=== PATIENT | female | born 1980 | race Caucasian/White ===

== ENCOUNTER 2023-08-14 09:30 | Outpatient (CLI) | payer MEDICAID | END 2023-08-14 09:31 | disposition critical access hospital (66) | LOC: EMS 09:30 | DX: Z04.6 Encounter for general psychiatric examination, requested by authority (principal); R45.851 Suicidal ideations; Z59.89 Other problems related to housing and economic circumstances; Z63.0 Problems in relationship with spouse or partner | CPT/HCPCS: A0425; A0429; A0999 ==

== ENCOUNTER 2023-08-14 10:00 | Emergency (ER) | payer MEDICAID, OTHER ==
--- NOTE | 2023-08-14 10:13 | ED Physician Documentation ---
PD HPI MHE - Stated complaint Stated Complaint: SI - History obtained from History obtained from: Patient, EMS - History of Present Illness Primary symptom: Suicidal ideation (She had suicidal ideation-when up to the bridge with thoughts of jumping. She states she is afraid of heights and really does not want to kill herself so this was a major step. She has had significant life change in the last couple of months with a new job and her unsupportive, financial.), Depression Timing - onset: How many months ago (1-2, worse the past week or more.) Contributing factors: Sig other, Work, Money, Off meds (ran out of [employer] and psych provider not refilling it. Still taking other meds.). No: Substance abuse - ETOH, Substance abuse - drugs Similar symptoms before: Diagnosis (depression but no prior suicidal ideation to this degree) Recently seen: Not recently seen PD PAST MEDICAL HISTORY - Allergies Allergies/Adverse Reactions: Allergies Allergy/AdvReac Type Severity Reaction Status Date / Time quetiapine [From Seroquel] AdvReac Hallucinati Verified 08/14/23 10:23 ons PD ED PE NORMAL - Vitals Vital signs reviewed: Yes - General General: Alert and oriented X 3, Well developed/nourished, Other (tearful and sad) - Neck Neck: Supple, no meningeal sign, No adenopathy - Cardiac Cardiac: RRR, No murmur - Respiratory Respiratory: Clear bilaterally - Abdomen Abdomen: Soft, Non tender - Derm Derm: Normal color, Warm and dry - Extremities Extremities: Normal ROM s pain, No edema, No calf tenderness / cord - Neuro Neuro: Alert and oriented X 3, No motor deficit, Normal speech Eye Opening: Spontaneous Motor: Obeys Commands Verbal: Oriented GCS Score: 15 - Psych Psych: Normal affect (sad). No: Normal mood (sad and tearful ) Results - Vitals Vitals: Vital Signs - 24 hr 08/14/23 08/14/23 10:05 14:22 Temperature 37.0 C 36.8 C Heart Rate 83 70 Respiratory 14 16 Rate Blood Pressure 165/107 H 138/88 H O2 Saturation 98 99 Oxygen O2 Source Room air - Labs Labs: Laboratory Tests 08/14/23 08/14/23 08/14/23 10:16 10:16 10:25 WBC 8.7 RBC 5.33 Hgb 14.0 Hct 44.1 MCV 82.7 MCH 26.3 L MCHC 31.7 L RDW 14.8 Plt Count 491 H MPV 9.2 Neut # (Auto) 5.6 Lymph # (Auto) 2.4 Mcculloch # (Auto) 0.6 Eos # (Auto) 0.1 Baso # (Auto) 0.0 Absolute Nucleated RBC 0.00 Nucleated RBC % 0.0 Sodium Potassium Chloride Carbon Dioxide Anion Gap BUN Creatinine Estimated GFR (MDRD) Glucose Calcium Magnesium Total Bilirubin AST ALT Alkaline Phosphatase Total Creatine Kinase Total Protein Albumin Globulin Albumin/Globulin Ratio Lipase TSH Urine Color YELLOW Urine Clarity SL. CLOUDY Urine pH 6.5 Ur Specific [place] 1.020 Urine Protein NEGATIVE Urine Glucose (UA) NEGATIVE Urine Ketones NEGATIVE Urine Occult Blood SMALL H Urine Nitrite NEGATIVE Urine Bilirubin NEGATIVE Urine Urobilinogen 0.2 (NORMAL) Ur Leukocyte Esterase NEGATIVE Urine RBC 6-10 H Urine WBC 0-3 Ur Squamous Epith Cells MANY Squamous H Urine Bacteria Few Ur Microscopic Review INDICATED Urine Culture Comments NOT INDICATED Urine HCG, Qual NEGATIVE Salicylates Urine Opiates Screen NEGATIVE Ur Oxycodone Screen NEGATIVE Urine Methadone Screen NEGATIVE Ur Propoxyphene Screen NEGATIVE Acetaminophen Ur Barbiturates Screen NEGATIVE Ur Tricyclics Screen NEGATIVE Ur Phencyclidine Scrn NEGATIVE Ur Amphetamine Screen NEGATIVE U Methamphetamines Scrn NEGATIVE U Benzodiazepines Scrn POSITIVE H Urine Cocaine Screen NEGATIVE U Cannabinoids Screen POSITIVE H Ethyl Alcohol SARS-CoV-2 (PCR) NOT DETECTED 08/14/23 08/14/23 10:25 16:05 WBC RBC Hgb Hct MCV MCH MCHC RDW Plt Count MPV Neut # (Auto) Lymph # (Auto) [place] # (Auto) Eos # (Auto) Baso # (Auto) Absolute Nucleated RBC Nucleated RBC % Sodium 140 138 Potassium 3.2 L 3.6 Chloride 103 104 Carbon Dioxide 27 26 Anion Gap 10.0 8.0 BUN 5 L 6 Creatinine 0.6 0.5 L Estimated GFR (MDRD) 110 136 Glucose 107 H 108 H Calcium 9.9 9.3 Magnesium 1.7 Total Bilirubin 0.6 AST 18 ALT 29 Alkaline Phosphatase 64 Total Creatine Kinase 70 Total Protein 7.9 Albumin 4.9 Globulin 3.0 Albumin/Globulin Ratio 1.6 Lipase 18 TSH 3.34 Urine Color Urine Clarity Urine pH Ur Specific [place] Urine Protein Urine Glucose (UA) Urine Ketones Urine Occult Blood Urine Nitrite Urine Bilirubin Urine Urobilinogen Ur Leukocyte Esterase Urine RBC Urine WBC Ur Squamous Epith Cells Urine Bacteria Ur Microscopic Review Urine Culture Comments Urine HCG, Qual Salicylates < 1.5 Urine Opiates Screen Ur Oxycodone Screen Urine Methadone Screen Ur Propoxyphene Screen Acetaminophen 0.1 Ur Barbiturates Screen Ur Tricyclics Screen Ur Phencyclidine Scrn Ur Amphetamine Screen U Methamphetamines Scrn U Benzodiazepines Scrn Urine Cocaine Screen U Cannabinoids Screen Ethyl Alcohol < 10.0 SARS-CoV-2 (PCR) PD Medical Decision Making - ED course Complexity details: reviewed results (Basic chemistry panel and blood count are normal with the exception of a low potassium at 3.2. She is given oral supplementation for that.), re-evaluated patient (Initial blood pressure was slightly elevated with a recheck in the normal range at 138/88. Otherwise the patient is resting comfortably. She did ask for something to help with sleep and relaxing. She was given trazodone orally.), considered differential ( Longer-term history of depression with acute worsening in the last month and suicidal ideation with initial steps of going to the bridge today. She is voluntary for hospitalization. Social work is talked with her.), d/w patient Reviewed Lab Results: [facility] facility is excepting the patient provided we give an extra potassium and recheck the level to be more normal. She had been given an oral supplement. Recheck potassium is now 3.6. We will fax the results to [facility] and presume the patient will be ready for for acceptance. Transport will then be arranged. The patient is remained stable here in the ER pleasant and cooperative. She has been resting. Social Determinants of Health: The patient states she has been having a new job in the last month and a half. She is liking her new job. She has a new psychiatric provider in the last couple of months. She states her is not very supportive but is still at home with her. She denies substance abuse. She does need increased psychological help and support and may benefit from change in medication. She is acutely worse with suicidal ideation and made the forward movement of actually going up to the bridge with thoughts of jumping off. She was found by a Health Sciences Department Chair there who called police and she was brought here for evaluation. She would like help. ED course: Social work is talk to the patient and is looking for voluntary placement for her. Social work did find voluntary placement for her at [facility]. They requested that we supplement her potassium as it was so normal. We we will give an oral potassium dose and they did request that we recheck the lab. We will give it 1/2-hour after the oral dosing and recheck the labs. Departure - Departure Disposition: 65 Psych Hosp/Unit DC/Xfer Clinical Impression: Suicidal ideation, Reactive depression, Hypokalemia Depression Qualifiers: Depression Type: persistent depressive disorder Qualified Code(s): F34.1 - Dysthymic disorder Condition: Stable Record reviewed to determine appropriate education?: Yes Forms: PCP List
[2023-08-14 10:21] LABS: MUDS CUTOFF CONCENTRATIONS CUTOFF CONC BELOW:
[2023-08-14 10:24] LABS: BILIRUBIN,URINE NEGATIVE (NEGATIVE); GLUCOSE, URINE (UA) NEGATIVE (NEGATIVE); KETONES,URINE (UA) NEGATIVE (NEGATIVE); LEUKOCYTE ESTERASE, URINE NEGATIVE (NEGATIVE); NITRITE,URINE NEGATIVE (NEGATIVE); OCCULT BLOOD,URINE SMALL (NEGATIVE); PH,URINE 6.5 PH (5.0-7.5); PROTEIN,URINE NEGATIVE (NEGATIVE); UROBILINOGEN,URINE 0.2 (NORMAL) E.U./dL (NORMAL)
[2023-08-14 10:25] LABS: CLARITY,URINE SL. CLOUDY (CLEAR); HCG UR QUAL NEGATIVE
[2023-08-14 10:28] LABS: BACTERIA,URINE Few /HPF (None Seen); SQUAMOUS EPITHELIAL CELL,UR MANY Squamous (<= Few); WBC,URINE 0-3 /HPF (0-5)
[2023-08-14 10:32] LABS: BASOPHILS % (AUTO) 0.3 %; EOSINOPHILS # (AUTO) 0.1 10^3/uL (0.0-0.7); EOSINOPHILS % (AUTO) 0.6 %; HCT - HEMATOCRIT 44.1 % (37.0-47.0); LYMPHOCYTES # (AUTO) 2.4 10^3/uL (1.5-3.5); LYMPHOCYTES % (AUTO) 27.1 %; MEAN CORPUSCULAR HEMOGLOBIN 26.3 pg (27.0-31.0); MEAN CORPUSCULAR HGB CONC 31.7 g/dL (32.0-36.0); MEAN CORPUSCULAR VOLUME 82.7 fL (81.0-99.0); MEAN PLATELET VOLUME 9.2 fL (7.9-10.8); MONOCYTES # (AUTO) 0.6 10^3/uL (0.0-1.0); MONOCYTES % (AUTO) 7.3 %; NEUTROPHILS # (AUTO) 5.6 10^3/uL (1.5-6.6); NEUTROPHILS % (AUTO) 64.4 %; PLT - PLATELET COUNT 491 10^3/uL (130-450); RED BLOOD COUNT 5.33 10^6/uL (4.20-5.40); RED CELL DISTRIBUTION WIDTH 14.8 % (12.0-15.0); WHITE BLOOD COUNT 8.7 x10^3/uL (4.8-10.8)
[2023-08-14 10:33] LABS: THC CANNABINOID SCREEN, URINE POSITIVE (NEGATIVE)
[2023-08-14 10:34] LABS: AMPHETAMINE SCREEN,URINE NEGATIVE (NEGATIVE); BARBITURATE SCREEN,UR NEGATIVE (NEGATIVE); BENZODIAZEPINES SCREEN, URINE POSITIVE (NEGATIVE); COCAINE SCREEN URINE NEGATIVE (NEGATIVE); METHADONE SCREEN, URINE NEGATIVE (NEGATIVE); METHAMPHETAMINES SCREEN, URINE NEGATIVE (NEGATIVE); OPIATE SCREEN, URINE NEGATIVE (NEGATIVE); OXYCODONE SCREEN, URINE NEGATIVE (NEGATIVE); PROPOXYPHENE SCREEN, URINE NEGATIVE (NEGATIVE); TRICYCLIC ANTIDEPRESSANT,URINE NEGATIVE (NEGATIVE)
[2023-08-14 10:50] LABS: ACETAMINOPHEN 0.1 ug/mL; ALBUMIN 4.9 g/dL (3.2-5.5); ALBUMIN/GLOBULIN RATIO 1.6 (1.0-2.2); ALKALINE PHOSPHATASE 64 IU/L (42-121); ALT ALANINE AMINOTRANSFERASE 29 IU/L (10-60); AST ASPARTATE AMINOTRANSFERASE 18 IU/L (10-42); BILIRUBIN,TOTAL 0.6 mg/dL (0.2-1.0); BUN - BLOOD UREA NITROGEN 5 mg/dL (6-20); CALCIUM 9.9 mg/dL (8.5-10.3); CARBON DIOXIDE - CO2 27 mmol/L (21-32); CHLORIDE 103 mmol/L (101-111); CK- CREATINE KINASE 70 IU/L (30-223); CREATININE 0.6 mg/dL (0.6-1.3); ETOH - ETHANOL < 10.0 mg/dL; GFR - MDRD 110 (>89); GLUCOSE 107 mg/dL (74-104); LIPASE 18 U/L (11-82); MAGNESIUM 1.7 mg/dL (1.7-2.3); POTASSIUM 3.2 mmol/L (3.5-4.5); SODIUM 140 mmol/L (135-145); TOTAL PROTEIN 7.9 g/dL (6.4-8.9)
[2023-08-14 10:57] LABS: SALICYLATE < 1.5 mg/dL
[2023-08-14 11:07] LABS: THYROID STIMULATING HORMONE 3.34 uIU/mL (0.34-5.60)
[2023-08-14] MEDS ORDERED: traZODone 50 MG TABLET PO STA (13:45)
[2023-08-14 14:25] VITALS: BP 138/88; O2SAT 99
[2023-08-14] MEDS ORDERED: POTASSIUM BICARB 25 MEQ TABLET PO STA (15:37)
[2023-08-14 16:38] LABS: CALCIUM 9.3 mg/dL (8.5-10.3); CREATININE 0.5 mg/dL (0.6-1.3); POTASSIUM 3.6 mmol/L (3.5-4.5)
== END 2023-08-14 19:20 ==
LOC: ED 10:00
DX: R45.851 Suicidal ideations (principal); F32.A Depression, unspecified; F34.1 Dysthymic disorder; E87.6 Hypokalemia; I10 Essential (primary) hypertension; Z20.822 Contact with and (suspected) exposure to COVID-19
CPT/HCPCS: 36415; 80048; 80053; 80306; 80307; 80320; 80329; 81001; 81025; 82550; 83690; 83735; 84443; 85025; 87635; 99285; A9270; 81003; 87086